=== PATIENT | male | born 1995 | race Caucasian/White ===

== ENCOUNTER 2018-02-24 13:20 | Emergency (ER) | payer OTHER ==
[~2018-02-24] VITALS: Ht 177.8 cm; Wt 110.7 kg
[~2018-02-24 13:20] MED LIST: HYDROXYZINE HCL25 M1 PO; PROZAC20 MG PO
[2018-02-24 13:43] LABS: ABSOLUTE EOSINOPHILS 0.3 thou/uL (0.0-0.7); ABSOLUTE LYMPHOCYTES 2.7 thou/uL (0.8-5.3); ABSOLUTE NEUTROPHILS 3.5 thou/uL (1.6-8.1); BASOPHILS 0.5 %; EOSINOPHILS 3.3 %; HEMATOCRIT 45.5 % (42.0-52.0); LYMPHOCYTES 35.6 %; MCH 26.3 pg (26.0-34.0); MCV 79.6 fL (80.0-100.0); MONOCYTES 13.8 %; MPV 8.9 fl. (7.2-11.1); NUCLEATED RBCS 0 /100WBC; PLATELET COUNT* 317 thou/uL (150-400); POLYS 46.8 %; RBC 5.71 mil/uL (4.50-6.00); RDW-CV 13.5 % (10.5-14.5); WBC 7.5 thou/uL (4.0-11.0)
[2018-02-24 13:48] LABS: ANION GAP 10 mmol/L (7-16); BUN 13 mg/dL (7-18); CALCIUM 8.2 mg/dL (8.5-10.1); CHLORIDE 105 mmol/L (98-107); CO2 26 mmol/L (21-32); CREATININE 0.9 mg/dL (0.6-1.3); GLUCOSE 145 mg/dL (70-99); POTASSIUM 3.6 mmol/L (3.5-5.1); SODIUM 141 mmol/L (136-145)
[2018-02-24 13:49] LABS: INR 1.1; PROTIME 10.9 Seconds (9.20-11.50)
[2018-02-24 14:07] LABS: ALBUMIN 3.4 g/dL (3.4-5.0); ALKALINE PHOSPHATASE 105 U/L (46-116); CK-MB MASS 0.6 ng/mL (<0.5-3.6); LIPASE 131 U/L (73-393); MAGNESIUM 1.7 mg/dL (1.8-2.4); NT-PRO BRAIN NAT PEPTIDE < 5 pg/mL (<300); SGOT 22 U/L (15-37); SGPT 48 U/L (30-65); TOTAL BILIRUBIN 0.2 mg/dL (<0.1-1.0); TOTAL PROTEIN 6.9 g/dL (6.4-8.2); TROPONIN-I LEVEL <0.06 ng/mL (<0.06)
[2018-02-24 15:02] VITALS: BP 116/76
--- NOTE | 2018-02-25 11:28 | EKG ---
[place] [address] ELECTROCARDIOGRAM REPORT Name: PRESLEY VASQUEZ Natalya Room: [facility]#: [id number] Admission: 02/24/18 Attend Phys: Discharge: 02/24/18 Date of : [birth year] Report #: [id number] THIS REPORT FOR: //name// [facility] ED Test Date: 2018-02-24 Test Time: 13:24:38 Pat Name: PRESLEY VASQUEZ Department: Room: Gender: Independent Contractor: : 1995 Requested By: Homero Yepez Order Number: [id number] MD: Patrice Lin Measurements Intervals [place] Rate: 72 P: 28 AR: 162 QRS: 41 QRSD: 87 T: 32 QT: 393 QTc: 431 Interpretive Statements Sinus rhythm Compared to ECG 04/17/2016 07:52:33 No significant changes Electronically Signed On 02-25-2018 11:28:14 [employer] by Patrice Lin [email or web address] <ELECTRONICALLY SIGNED> By: Patrice Lin MD, [facility] 02/25/18 [id number] Patrice Lin MD, FACC /EPI
== END 2018-02-24 15:03 | disposition home or self-care (01) ==
LOC: M.ERS 13:20
PROVIDERS: Family Medicine
DX: R10.13 Epigastric pain (principal); R11.2 Nausea with vomiting, unspecified; F41.9 Anxiety disorder, unspecified; K21.9 Gastro-esophageal reflux disease without esophagitis